=== PATIENT | female | born 1985 | race Caucasian/White ===

== ENCOUNTER 2017-01-19 06:35 | Observation (INO) | payer OTHER ==
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
[2017-01-19] MEDS ORDERED: HOME MEDICATION LIST NEEDED 1 EA EACH MC ONE (09:01)
[2017-01-19] MEDS ORDERED: ACETAMINOPHEN 325 MG TABLET PO PRN (09:01)
[2017-01-19] MEDS ORDERED: DIPHENHYDRAMINE 25 MG CAPSULE PO PRN (09:07)
[2017-01-19 09:28] VITALS: BP 125/75; RESP 18; TEMP 97.2
[2017-01-19 09:35] LABS: BASOPHIL# 0.1 X 10^3uL (0.0-0.1); BASOPHILS 0.8 % (0.0-2.0); EOSINOPHILS 1.3 % (0.0-6.0); EOSINOPHILS# 0.1 X 10^3uL (0.0-0.4); HEMOGLOBIN 12.9 g/dL (12.0-16.0); LYMPHOCYTES 23.7 % (20.0-40.0); LYMPHOCYTES# 1.5 X 10^3uL (0.8-3.8); MEAN CELL VOLUME 83.6 fL (80.0-100.0); MEAN CORPUSCULAR HEMOGLOBIN 28.4 pg (29.0-35.0); MEAN PLATELET VOLUME 8.5 fL (7.4-10.4); MONOCYTES 6.8 % (2.0-10.0); MONOCYTES# 0.4 X 10^3uL (0.2-1.0); NEUTROPHILS 67.4 % (54.0-75.0); NEUTROPHILS# 4.3 X 10^3uL (2.6-6.7); RED BLOOD COUNT 4.54 X 10^6uL (4.20-6.10); WHITE BLOOD COUNT 6.4 X 10^3uL (3.9-10.7)
[2017-01-19] MEDS ORDERED: PRENATAL VIT/FE FUMARATE/FA 1 TAB TABLET ONE (09:51)
[2017-01-19 09:58] VITALS: PULSE 100
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
[2017-01-20] MEDS ORDERED: PRENATAL VIT/FE FUMARATE/FA 1 TAB TABLET PO SCH (09:00)
== END 2017-01-19 13:15 | disposition home or self-care (01) ==
LOC: ER 06:35 → NLC 07:21
PROVIDERS: ADMIT Obstetrics & Gynecology; ATTEND Obstetrics & Gynecology
DX: Z04.1 Encounter for examination and observation following transport accident (principal); V89.2XXA Person injured in unspecified motor-vehicle accident, traffic, initial encounter; O99.343 Other mental disorders complicating pregnancy, third trimester; O24.410 Gestational diabetes mellitus in pregnancy, diet controlled; O99.283 Endocrine, nutritional and metabolic diseases complicating pregnancy, third trimester; F41.8 Other specified anxiety disorders; Z3A.30 30 weeks gestation of pregnancy
CPT/HCPCS: 85025; 85461; 99285; A0425; A0429; G0378